=== PATIENT | female | born 1960 | race Caucasian/White ===

== ENCOUNTER 2016-08-14 09:34 | Emergency (ER) | payer BC ==
[~2016-08-14 09:34] MED LIST: ASPIRIN 81 MG TABLET, CHEWABLE PO ONE
--- NOTE | 2016-08-14 09:56 | ER Document Report ---
ED General - General Mode of Arrival: Medic Information source: Patient TRAVEL OUTSIDE OF THE [place] IN LAST 30 DAYS: No - HPI Patient complains to provider of: Chest Pain Onset: This morning Onset/Duration: Sudden, Persistent Associated symptoms: Chest pain, Nausea, Other - Dizzy, lightheaded <KEYSHA KEEN - Last Filed: 08/14/16 11:46> <ASHLEIGH UPTON - Last Filed: 08/14/16 11:56> - General Chief Complaint: Chest Pain Stated Complaint: CHEST PAIN Notes: Patient is a 56-year-old female presenting to the emergency department concerned of chest pain onset this morning after waking up and taking a shower. Patient also complains of dizziness, clamminess, nausea, and lightheadedness. Patient describes the chest pain as pressure that radiates around into her back. Patient has a history of cholecystectomy, 2 cardiac catheterizations, cardioversion for A. fib, and an operation on her mitral valve (she does not know what the surgeon did). Patient denies any other symptoms at this time. ( KEYSHA KEEN) - Related Data Allergies/Adverse Reactions: No Known Allergies Allergy (Verified 12/21/13 22:49) Past Medical History - General Information source: Patient - Social History Smoking Status: Never Smoker Family History: Reviewed & Not Pertinent, CAD, CVA, Hypertension, Malignancy - Past Medical History Cardiac Medical History: Reports: Hx Atrial Fibrillation, Hx Hypercholesterolemia, Hx Hypertension Neurological Medical History: Reports: Hx Migraine Psychiatric Medical History: Reports: Hx Depression Past Surgical History: Reports: Hx Cardiac Catheterization, Hx Cardiac Surgery - Cardioversion and mitral valve clip, Hx Section - X2, Hx Cholecystectomy, Hx Orthopedic Surgery - left shoulder x5 - Immunizations Immunizations up to date: Yes Hx Diphtheria, Pertussis, Tetanus Vaccination: Yes <KEYSHA KEEN - Last Filed: 08/14/16 11:46> Past Surgical History: Reports: Hx Cardiac Catheterization - Cardiac catheter 2 , no coronary artery disease found, Hx Orthopedic Surgery - left shoulder x5, anterior cervical fusion <ASHLEIGH UPTON - Last Filed: 08/14/16 11:56> Review of Systems - Review of Systems Constitutional: See HPI, Other - Clammy EENT: No symptoms reported Cardiovascular: See HPI, Chest pain - Pressure, Dizziness, Lightheaded Respiratory: No symptoms reported Gastrointestinal: See HPI, Nausea Genitourinary: No symptoms reported Female Genitourinary: No symptoms reported Musculoskeletal: No symptoms reported Skin: No symptoms reported Hematologic/Lymphatic: No symptoms reported Neurological/Psychological: No symptoms reported <KEYSHA KEEN - Last Filed: 08/14/16 11:46> Physical Exam - General General appearance: Alert, Anxious - HEENT Head: Normocephalic, Atraumatic, Other - Turning head back and forth or up and down does not worsen dizziness. Eyes: Normal, Other - No lateral gaze nystagmus Pupils: PERRL - Respiratory Respiratory status: No respiratory distress Chest status: Nontender - No anterior chest wall tenderness to palpation Breath sounds: Normal - Cardiovascular Rhythm: Regular Heart sounds: Normal auscultation Murmur: No - Abdominal Inspection: Normal Tenderness: Tender - Epigastric tenderness to palpation - Back Back: Normal, Nontender - Extremities General upper extremity: Normal inspection, Nontender General lower extremity: Normal inspection, Nontender - Neurological Neuro grossly intact: Yes Cognition: Normal Orientation: AAOx4 Fredy Coma Scale Eye Opening: Spontaneous Brady Coma Scale Verbal: Oriented Brady Coma Scale Motor: Obeys Commands Brady Coma Scale Total: 15 Speech: Normal - Psychological Associated symptoms: Normal affect, Anxious - Skin Skin Temperature: Warm Skin Moisture: Dry Skin Color: Normal <KEYSHA KEEN - Last Filed: 08/14/16 11:46> Course - Laboratory Result Diagrams: 08/14/16 09:45 08/14/16 09:45 <KEYSHA KEEN - Last Filed: 08/14/16 11:46> - Laboratory Result Diagrams: 08/14/16 09:45 08/14/16 09:45 <ASHLEIGH UPTON - Last Filed: 08/14/16 11:56> - Vital Signs Vital signs: Temp Pulse Resp BP Pulse Ox 97.7 F 12 137/89 H 100 08/14/16 09:55 08/14/16 11:01 08/14/16 11:00 08/14/16 11:01 - Laboratory Laboratory results interpreted by me: 08/14/16 08/14/16 09:45 09:45 WBC 11.7 H Seg Neutrophils % 87.3 H Lymphocytes % 7.1 L Absolute Neutrophils 10.2 H Sodium 145.7 H BUN 21 H Creatine Kinase 199 H Discharge <KEYSHA KEEN Last Filed: 08/14/16 11:46> <ASHLEIGH UPTON - Last Filed: 08/14/16 11:56> - Discharge Clinical Impression: Anxiety GERD (gastroesophageal reflux disease) Qualifiers: Esophagitis presence: esophagitis presence not specified Qualified Code(s): K21.9 - Gastro-esophageal reflux disease without esophagitis Chest pain Qualifiers: Chest pain type: unspecified Qualified Code(s): R07.9 - Chest pain, unspecified Condition: Stable Disposition: HOME, SELF-CARE Additional Instructions: Reflux Disease (GERD): Gastro-Esophageal Reflux Disease (GERD) is caused by stomach acid refluxing back up into the esophagus. The valve at the end of the esophagus may be weak. This is common in persons with a hiatal hernia. GERD symptoms can include indigestion, chest pain, heartburn, or food "sticking." Certain foods, alcohol, and aspirin can make GERD worse. Treatment depends on the severity. Usually, antacids or acid-suppressing medicines are used. When the esophagus is acutely inflamed, the physician will often prescribe membrane-protective drugs such as Carafate. Some patients benefit from medication such as Reglan that tightens the valve at the top of the stomach. Avoid those foods that bring on your symptoms. For many people, these foods are coffee, chocolate, onions, garlic, and carbonated drinks. Don't use alcohol, aspirin, caffeine, or tobacco. Don't eat late at night -- within 4 hours of bedtime. Don't over-eat. If necessary, elevate the head of your bed about 4 inches so that stomach acid will not roll up into your esophagus. Call the doctor if you develop severe chest pain, inability to swallow fluids, fever, or worsening symptoms. TAKE PRILOSEC OTC ONCE DAILY. EAT A BLAND DIET. TAKE ANTI-ACIDS BETWEEN MEALS AND AT BEDTIME. FOLLOW UP WITH YOUR DOCTOR IF NOT IMPROVING. RETURN TO THE EMERGENCY ROOM IF ANY NEW OR WORSENING SYMPTOMS. Forms: Return to Work Scribe Attestation: 08/14/16 11:55 I personally performed the services described in the documentation, reviewed and edited the documentation which was dictated to the scribe in my presence, and it accurately records my words and actions. (ASHLEIGH UPTON) Scribe Documentation - Scribe Written by Scribtara:: Keysha Keen 08/14/2016 [id number] acting as scribe for :: Clif <KEYSHA KEEN - Last Filed: 08/14/16 11:46>
[2016-08-14 09:59] LABS: ABSOLUTE EOSINOPHILS # (AUTO) 0.1 10^3/uL (0.0-0.6); ABSOLUTE LYMPHOCYTES (AUTO) 0.8 10^3/uL (0.5-4.7); ABSOLUTE MONOCYTES (AUTO) 0.5 10^3/uL (0.1-1.4); ABSOLUTE NEUT (AUTO) 10.2 10^3/uL (1.7-8.2); BASOPHILS % (AUTO) 0.2 % (0-2); EOSINOPHILS % (AUTO) 0.8 % (0-6); HEMATOCRIT 41.5 % (36.0-47.0); HEMOGLOBIN 14.3 g/dL (12.0-15.5); HGB HCT DIFFERENCE 1.4; LYMPHOCYTES % (AUTO) 7.1 % (13-45); MEAN CORPUSCULAR HEMOGLOBIN 30.5 pg (27.0-33.4); MEAN CORPUSCULAR HGB CONC 34.4 g/dL (32.0-36.0); MEAN CORPUSCULAR VOLUME 89 fl (80-97); MONOCYTES % (AUTO) 4.6 % (3-13); RED BLOOD COUNT 4.68 10^6/uL (3.72-5.28); RED CELL DISTRIBUTION WIDTH 13.4 % (11.5-14.0); SEGMENTED NEUTROPHILS % (AUTO) 87.3 % (42-78); WHITE BLOOD COUNT 11.7 10^3/uL (4.0-10.5)
[2016-08-14] MEDS ORDERED: MAG HYDROX/AL HYDROX/SIMETH SUSP 30 ML UDCUP PO ONE (10:06)
[2016-08-14] MEDS ORDERED: LIDOCAINE 2% VISCOUS SOLN 20 ML UDCUP PO ONE (10:06)
[2016-08-14] MEDS ORDERED: LORAZEPAM INJ 2 MG/1 ML VIAL IV ONE (10:07)
[2016-08-14] MEDS ORDERED: NORMAL SALINE 1000 ML 1,000 ML IV ONE (10:13)
[2016-08-14 10:18] LABS: ALANINE AMINOTRANSFERASE 30 U/L (9-52); ALBUMIN 4.6 g/dL (3.5-5.0); ALKALINE PHOSPHATASE 103 U/L (38-126); ANION GAP 16 (5-19); ASPARTATE AMINO TRANSFERASE 25 U/L (14-36); BILIRUBIN,DIRECT 0.3 mg/dL (0.0-0.4); BILIRUBIN,TOTAL 0.6 mg/dL (0.2-1.3); BLOOD UREA NITROGEN 21 mg/dL (7-20); CALCIUM 9.9 mg/dL (8.4-10.2); CARBON DIOXIDE 24 mmol/L (22-30); CHLORIDE 106 mmol/L (98-107); CREATINE KINASE 199 U/L (30-135); CREATININE RESULT 0.85 mg/dL (0.52-1.25); GLUCOSE 105 mg/dL (75-110); POTASSIUM 4.2 mmol/L (3.6-5.0); SODIUM 145.7 mmol/L (137-145); TOTAL PROTEIN 7.8 g/dL (6.3-8.2)
[2016-08-14 10:30] LABS: CREATINE KINASE MB 2.09 ng/mL (<4.55)
[2016-08-14 10:31] LABS: TROPONIN I < 0.012 ng/mL
[2016-08-14 12:19] VITALS: BP 119/78
--- NOTE | 2016-08-14 12:54 | EKG REPORT ---
SEVERITY:- NORMAL ECG - SINUS RHYTHM : Confirmed by: Amarilys Nicholson MD 14-Aug-2016 12:53:21
== END 2016-08-14 12:19 | disposition home or self-care (01) ==
LOC: ER 09:34
DX: K21.9 Gastro-esophageal reflux disease without esophagitis (principal); F41.9 Anxiety disorder, unspecified; R07.9 Chest pain, unspecified; R42 Dizziness and giddiness; R11.0 Nausea; I48.91 Unspecified atrial fibrillation
CPT/HCPCS: 93005; 99285; 96361; 96374; 36415; 82553; 82550; 85025; 80053; 84484; 71010; 93010; J3490; J2060; J7030

== ENCOUNTER 2017-01-02 19:57 | Emergency (ER) | payer BC ==
[2017-01-02] MEDS ORDERED: HYDROMORPHONE HCL INJ/PF 2 MG/ML AMPULE IV ONE (20:08)
[2017-01-02] MEDS ORDERED: HYDROMORPHONE HCL INJ/PF 2 MG/ML AMPULE ONE (20:10)
[2017-01-02] MEDS ORDERED: ONDANSETRON HCL INJ/PF 4 MG/2 ML SDV ONE (20:10)
--- NOTE | 2017-01-02 20:22 | ER Document Report ---
ED General - General Stated Complaint: HEAD/NECK PAIN Time Seen by Provider: 01/02/17 20:07 Notes: Patient is a 56-year-old female comes emergency department for chief complaint of severe upper back and neck pain that started about 1 hour prior to arrival. She states the pain is so bad it made her vomit. She also reports pain radiating down both of her arms. She denies chest pain, abdominal pain. She denies headache. She denies numbness or weakness. She is not on a blood thinner. She is about 4 months postop cervical spine surgery, she states she has hardware but she is unable to give me details, she denies having any injury or understanding why she had the surgery to begin with. This was performed in [place]. Only other reported medical history is hypertension. TRAVEL OUTSIDE OF THE [place] IN LAST 30 DAYS: No - Related Data Allergies/Adverse Reactions: No Known Allergies Allergy (Verified 12/21/13 22:49) Past Medical History - General Information source: Patient - Social History Smoking Status: Never Smoker Drug Abuse: None Lives with: Family Family History: Reviewed & Not Pertinent, CAD, CVA, Hypertension, Malignancy - Past Medical History Cardiac Medical History: Reports: Hx Atrial Fibrillation, Hx Coronary Artery Disease, Hx Hypercholesterolemia, Hx Hypertension Denies: Hx Congestive Heart Failure, Hx Heart Attack, Hx Peripheral Vascular Disease, Hx Heart Murmur Pulmonary Medical History: Denies: Hx Tuberculosis Neurological Medical History: Reports: Hx Migraine. Denies: Hx Cerebrovascular Accident, Hx Seizures Endocrine Medical History: Denies: Hx Diabetes Mellitus Type 2 Renal/ Medical History: Denies: Hx End Stage Renal Disease, Hx Kidney Stones, Hx Ovarian Cysts, Hx Peritoneal Dialysis, Hx Pelvic Inflammatory Disease Malignancy Medical History: Denies: Hx Breast Cancer, Hx Cervical Cancer, Hx Leukemia, Hx Ovarian Cancer GI Medical History: Denies: Hx Gastritis, Hx Gastroesophageal Reflux Disease Musculoskeltal Medical History: Denies Hx Multiple Sclerosis Skin Medical History: Denies Hx MRSA Psychiatric Medical History: Reports: Hx Depression Denies: Hx Dementia Infectious Medical History: Denies: Hx HIV Past Surgical History: Reports: Hx Cardiac Catheterization - Cardiac catheter 2 , no coronary artery disease found, Hx Cardiac Surgery - Cardioversion and mitral valve clip, Hx Section - X2, Hx Cholecystectomy, Hx Orthopedic Surgery - left shoulder x5, anterior cervical fusion. Denies: Hx Appendectomy, Hx Bowel Surgery, Hx Coronary Artery Bypass Graft, Hx Gastric Bypass Surgery, Hx Herniorrhaphy, Hx Hysterectomy, Hx Mastectomy, Hx Pacemaker, Hx Tonsillectomy , Hx Tubal Ligation - Immunizations Immunizations up to date: Yes Hx Diphtheria, Pertussis, Tetanus Vaccination: Yes Review of Systems - Review of Systems Constitutional: No symptoms reported EENT: No symptoms reported Cardiovascular: See HPI Respiratory: No symptoms reported Gastrointestinal: No symptoms reported Genitourinary: No symptoms reported Female Genitourinary: No symptoms reported Musculoskeletal: See HPI Skin: No symptoms reported Hematologic/Lymphatic: No symptoms reported Neurological/Psychological: See HPI Physical Exam - Vital signs Vitals: Resp Pulse Ox 17 98 01/02/17 20:06 01/02/17 20:06 Interpretation: Normal - General General appearance: Anxious In distress: Severe - HEENT Head: Normocephalic, Atraumatic Eyes: Normal Conjunctiva: Normal Extraocular movements intact: Yes Eyelashes: Normal Pupils: PERRL Nasal: Normal Mouth/Lips: Normal Mucous membranes: Normal Pharynx: Normal Neck: Normal - Respiratory Respiratory status: No respiratory distress Chest status: Nontender Breath sounds: Normal Chest palpation: Normal - Cardiovascular Rhythm: Regular. No: Tachycardia Heart sounds: Normal auscultation, S1 appreciated, S2 appreciated Murmur: No - Abdominal Inspection: Normal Distension: No distension Bowel sounds: Normal Tenderness: Nontender. No: Tender, Guarding Organomegaly: No organomegaly - Back Back: Tender - Patient does have tenderness in the general lower cervical area on examination, no swelling. Normal upper and lower extremity range of motion, strength, and sensation. Normal capillary refill. No saddle anesthesia. - Extremities General upper extremity: Normal inspection, Nontender, Normal color, Normal ROM , Normal temperature General lower extremity: Normal inspection, Nontender, Normal color, Normal ROM , Normal temperature, Normal weight bearing. No: Arlette's sign - Neurological Neuro grossly intact: Yes Cognition: Normal Orientation: AAOx4 Temperance Coma Scale Eye Opening: Spontaneous Temperance Coma Scale Verbal: Oriented Temperance Coma Scale Motor: Obeys Commands Fredy Coma Scale Total: 15 Speech: Normal Cranial nerves: Normal Cerebellar coordination: Normal Motor strength normal: LUE, RUE, LLE, RLE Additional motor exam normals: Equal asp net developer Sensory: Normal - Psychological Associated symptoms: Agitated - Skin Skin Temperature: Warm Skin Moisture: Dry Skin Color: Normal Course - Re-evaluation Re-evalutation: Patient initially writhing in pain, diaphoretic, flushed, she does have palpable pain in the lower cervical spine region, she does have pulses intact distally in the upper and lower extremities, she does have normal strength in all extremities. Blood pressure in the left arm 130s over 80s, blood pressure in the right arm 110s over 70s. Performing laboratory workup including EKG, will perform cervical spine imaging, will perform CTA to rule out dissection. Patient was discussed with Dr. Oliva. Patient's is at bedside. Called and confirmed imaging choices with radiology. 01/02/17 20:23 Review of previous visit shows history of RA and paroxysmal afib. CBC, chemistry generally unremarkable with slightly low bicarbonate. Patient given IV fluids. CTA of the chest/aorta with no dissection or acute abnormalities. CAT scan of the neck showing stable postsurgical findings. Patient is tender with palpation of the inferior cervical area. She has full range of motion of extremities, normal distal pulses and sensation. Normal strength. After treatments patient calm, relaxed, well appearing. 01/02/17 22:21 Pending call back from [facility]. Spoke with Dr. Dickinson, assistant store manager operations for Dr. Rincon who patient states she saw, he reports that patient actually had a procedure done by Dr. Roberts but he is assistant store manager operations for them as well. Reviewed symptoms, presentation, workup. He states that because patient's CAT scan, lab workup, and examination do not show any concerning deficits or abnormalities that patient can have pain management and close follow-up with Dr. Roberts. I spoke with patient, she became very nauseated and vomited multiple times, I actually suspect this was from the Dilaudid, treated with nausea medications and this resolved. No headache. Neurological exam is normal. Patient is now very well appearing again. Vital signs unremarkable. Cardiac enzymes cycled and normal. Discussed at length with patient and family, provided with copy of disc , medications including Lidoderm patches, and return precautions. Patient states understanding and agreement. - Vital Signs Vital signs: Temp Pulse Resp BP Pulse Ox 98 F 10 L 108/69 95 01/03/17 03:10 01/03/17 03:07 01/03/17 03:07 01/03/17 03:07 - Laboratory Result Diagrams: 01/02/17 20:10 01/02/17 20:10 Laboratory results interpreted by me: 01/02/17 20:10 Carbon Dioxide 20 L Glucose 121 H Calcium 10.4 H Creatine Kinase 166 H Total Protein 8.4 H Albumin 5.1 H Discharge - Discharge Clinical Impression: Neck pain Condition: Stable Disposition: HOME, SELF-CARE Additional Instructions: Your workup does not show any concerning abnormalities in regards to your chest , heart, or any obvious post surgical findings with your neck. Apply the patches, if needed take the pain medication (with the nausea medication if needed). Follow up closely with your surgeon (call tomorrow, take your disc with you on close followup). Return to the ED for [place] [address] [place], [place] [id number] Prescriptions: Morphine Sulfate [Morphine Ir 15 Mg Tablet] 15 mg PO Q4HP PRN #12 tablet PRN Reason: Lidocaine [Lidoderm 5% (700 mg) Transdermal Patch] 1 patch TP DAILY #30 adh..patch Ondansetron [Zofran Odt 4 mg Tablet] 1 - 2 tab PO Q4H PRN #15 tab.rapdis PRN Reason: For Nausea/Vomiting Referrals: EVE BOOKER MD [Primary Care Provider] - Follow up as needed
[2017-01-02 20:31] LABS: ABSOLUTE EOSINOPHILS # (AUTO) 0.1 10^3/uL (0.0-0.6); ABSOLUTE LYMPHOCYTES (AUTO) 3.1 10^3/uL (0.5-4.7); ABSOLUTE MONOCYTES (AUTO) 0.5 10^3/uL (0.1-1.4); ABSOLUTE NEUT (AUTO) 3.9 10^3/uL (1.7-8.2); BASOPHILS % (AUTO) 0.3 % (0-2); EOSINOPHILS % (AUTO) 1.1 % (0-6); HEMATOCRIT 42.7 % (36.0-47.0); HEMOGLOBIN 14.9 g/dL (12.0-15.5); LYMPHOCYTES % (AUTO) 40.3 % (13-45); MEAN CORPUSCULAR HEMOGLOBIN 31.6 pg (27.0-33.4); MEAN CORPUSCULAR HGB CONC 34.9 g/dL (32.0-36.0); MEAN CORPUSCULAR VOLUME 91 fl (80-97); MONOCYTES % (AUTO) 6.7 % (3-13); RED BLOOD COUNT 4.72 10^6/uL (3.72-5.28); RED CELL DISTRIBUTION WIDTH 12.9 % (11.5-14.0); SEGMENTED NEUTROPHILS % (AUTO) 51.6 % (42-78); WHITE BLOOD COUNT 7.6 10^3/uL (4.0-10.5)
[2017-01-02 20:48] LABS: ALANINE AMINOTRANSFERASE 40 U/L (9-52); ALBUMIN 5.1 g/dL (3.5-5.0); ALKALINE PHOSPHATASE 112 U/L (38-126); ANION GAP 17 (5-19); ASPARTATE AMINO TRANSFERASE 28 U/L (14-36); BILIRUBIN,DIRECT 0.4 mg/dL (0.0-0.4); BILIRUBIN,TOTAL 0.9 mg/dL (0.2-1.3); BLOOD UREA NITROGEN 13 mg/dL (7-20); CALCIUM 10.4 mg/dL (8.4-10.2); CARBON DIOXIDE 20 mmol/L (22-30); CHLORIDE 105 mmol/L (98-107); CREATINE KINASE 166 U/L (30-135); CREATININE RESULT 0.88 mg/dL (0.52-1.25); GLUCOSE 121 mg/dL (75-110); POTASSIUM 3.7 mmol/L (3.6-5.0); SODIUM 141.7 mmol/L (137-145); TOTAL PROTEIN 8.4 g/dL (6.3-8.2)
[2017-01-02] MEDS ORDERED: ONDANSETRON HCL INJ/PF 4 MG/2 ML SDV IV ONE ×2 (20:48→22:49)
[2017-01-02 20:59] LABS: CREATINE KINASE MB 1.58 ng/mL (<4.55)
[2017-01-02 21:00] LABS: TROPONIN I < 0.012 ng/mL
--- NOTE | 2017-01-02 21:12 | EKG REPORT ---
SEVERITY:- NORMAL ECG - SINUS RHYTHM : Confirmed by: Cam Cobb 02-Jan-2017 21:11:06
--- NOTE | 2017-01-02 21:41 | RADIOLOGY REPORT (SQ) ---
EXAM DESCRIPTION: CT CERVICAL SPINE WITHOUT COMPLETED DATE/TIME: 01/02/2017 9:20 pm REASON FOR STUDY: post op, severe neck/upper back pain COMPARISON: None. TECHNIQUE: Axial images acquired through the cervical spine without intravenous contrast. Images re viewed with lung, soft tissue and bone windows. Reconstructed coronal and sagittal MPR images review ed. Images stored on PACS. All CT scanners at this facility use dose modulation, iterative reconstruction, and/or weight based d osing when appropriate to reduce radiation dose to as low as reasonably achievable (ALARA). [facility]: Dose Right [facility]: CareDose [facility]: Dose Right [facility]: Teradose 4D [facility]: Smart [employer] RADIATION DOSE: Up-to-date CT equipment and radiation dose reduction techniques were employed. CTDIv ol: 16.8 mGy. DLP: 384 mGy-cm. mGy. LIMITATIONS: None. FINDINGS: ALIGNMENT: Anatomic. MINERALIZATION: Normal. VERTEBRAL BODIES: No fractures or dislocation. DISCS: No significant disc disease. FACETS, LATERAL MASSES, POSTERIOR ELEMENTS: No fractures. No dislocation. No acute findings. HARDWARE: There are postsurgical changes with anterior fusion from C4 through C7. VISUALIZED RIBS: No fractures. LUNG APICES AND SOFT TISSUES: No significant or acute findings. OTHER: No other significant finding. IMPRESSION: Postsurgical changes. No acute findings in the cervical spine. TECHNICAL DOCUMENTATION: JOB ID: [id number] Quality ID # [id number]: Final reports with documentation of one or more dose reduction techniques (e.g., Au tomated exposure control, adjustment of the mA and/or kV according to patient size, use of iterative reconstruction technique) 2010 [employer]- All Rights Reserved
--- NOTE | 2017-01-02 21:43 | RADIOLOGY REPORT (SQ) ---
EXAM DESCRIPTION: CTA CHEST COMPLETED DATE/TIME: 01/02/2017 9:20 pm REASON FOR STUDY: severe upper back pain, rule out dissection COMPARISON: None. TECHNIQUE: CT scan of the chest performed using helical scanning technique with dynamic intravenous contrast injection. Images reviewed with lung, soft tissue and bone windows. Reconstructed coronal and sagittal MPR images reviewed. Additional 3 dimensional post-processing performed to develop Maximal Intensity Projection images (IN P). All images stored on PACS. All CT scanners at this facility use dose modulation, iterative reconstruction, and/or weight based d osing when appropriate to reduce radiation dose to as low as reasonably achievable (ALARA). [facility]: Dose Right [facility]: CareDose [facility]: Dose Right [facility]: Teradose 4D [facility]: Panjiva CONTRAST TYPE AND DOSE: contrast/concentration: Isovue 370.00 mg/ml; Total Contrast Delivered: 100.0 ml; Total Saline Delivered: 70.0 ml RENAL FUNCTION: BUN 13, creatinine 0.88 RADIATION DOSE: Up-to-date CT equipment and radiation dose reduction techniques were employed. CTDIv ol: 11.2 - 17.0 mGy. DLP: 721 mGy-cm. . LIMITATIONS: None. FINDINGS: LUNGS AND PLEURA: No masses, infiltrates, pneumothorax. No pleural effusions, calcificati ons. AORTA AND GREAT VESSELS: No aneurysm or dissection. HEART: No pericardial effusion. PULMONARY ARTERIES: No emboli visualized in the main pulmonary arteries or the segmental branches. HILAR AND MEDIASTINAL STRUCTURES: No identified masses or abnormal nodes. HARDWARE: None in the chest. UPPER ABDOMEN: No significant findings. Limited exam. THYROID AND OTHER SOFT TISSUES: No masses. No adenopathy. BONES: No acute or significant finding. 3D MIPS: Confirm above findings. OTHER: No other significant finding. IMPRESSION: Normal CT of the chest. No pulmonary emboli. No aortic dissection. TECHNICAL DOCUMENTATION: JOB ID: [id number] Quality ID # [id number]: Final reports with documentation of one or more dose reduction techniques (e.g., Au tomated exposure control, adjustment of the mA and/or kV according to patient size, use of iterative reconstruction technique) 2010 [employer]- All Rights Reserved
--- NOTE | 2017-01-02 21:47 | RADIOLOGY REPORT (SQ) ---
EXAM DESCRIPTION: CTA ABDOMEN COMPLETED DATE/TIME: 01/02/2017 9:20 pm REASON FOR STUDY: rule out dissection COMPARISON: None. TECHNIQUE: CT scan of the abdominal aorta extending to the iliac bifurcation performed with and with out intravenous contrast using helical scanning technique with dynamic intravenous contrast injection . Images reviewed with lung, soft tissue, and bone windows. Reconstructed coronal and sagittal MPR im ages reviewed. All images stored on PACS. Advanced 3D imaging as volume rendering, MIPS, SSD performed? yes All CT scanners at this facility use dose modulation, iterative reconstruction, and/or weight based d osing when appropriate to reduce radiation dose to as low as reasonably achievable (ALARA). [facility]: Dose Right [facility]: CareDose [facility]: Dose Right [facility]: Teradose 4D [facility]: [employer] CONTRAST TYPE AND DOSE: 7 mL Isovue 370 RENAL FUNCTION: BUN 13, creatinine 0.88 LIMITATIONS: None. FINDINGS: POST-CONTRAST IMAGING: AORTA AND VESSELS: No aneurysm. No dissection. Renal arteries, SMA, celiac without stenosis. LUNG BASES: No significant findings. No nodules or infiltrates. LIVER: Normal size. No masses or dilated ducts. SPLEEN: Normal size. No focal lesions. PANCREAS: No masses. No significant calcifications. No adjacent inflammation or peripancreatic fluid collections. Pancreatic duct not dilated. GALLBLADDER: Surgically absent. ADRENAL GLANDS: No significant masses or asymmetry. RIGHT KIDNEY AND URETER: No mass, calculi or urinary tract obstruction. LEFT KIDNEY AND URETER: No mass, calculi or urinary tract obstruction. RETROPERITONEUM: No retroperitoneal adenopathy, hemorrhage or masses. BOWEL AND PERITONEAL CAVITY: No masses or inflammatory changes. No free fluid or peritoneal masses. APPENDIX: Normal. ABDOMINAL WALL: No masses. No hernias. BONY STRUCTURES: No significant or acute findings. 3-D IMAGING: Confirms the above findings. OTHER: No other significant finding. IMPRESSION: NO ABDOMINAL AORTIC ANEURYSM, DISSECTION OR SIGNIFICANT STENOSIS. NO SIGNIFICANT FINDING S IN THE ABDOMEN. TECHNICAL DOCUMENTATION: JOB ID: [id number] Quality ID # [id number]: Final reports with documentation of one or more dose reduction techniques (e.g., Au tomated exposure control, adjustment of the mA and/or kV according to patient size, use of iterative reconstruction technique) 2010 [employer]- All Rights Reserved
--- NOTE | 2017-01-02 21:48 | RADIOLOGY REPORT (SQ) ---
EXAM DESCRIPTION: CTA PELVIS COMPLETE DATE/TIME: 01/02/2017 9:20 pm REASON FOR STUDY: severe upper back pain, rule out dissection FINDINGS: Please see combined report for performance of procedure and radiologic supervision and int erpretation. IMPRESSION: Please see combined report for performance of procedure and radiologic supervision and i nterpretation.
[2017-01-02] MEDS ORDERED: NORMAL SALINE 1000 ML 1,000 ML IV ONE (21:53)
[2017-01-02] MEDS ORDERED: LIDOCAINE 5% (700 MG) TRANSDERMAL ADH..PATCH TP ONE (21:56)
[2017-01-02] MEDS ORDERED: DIPHENHYDRAMINE HCL 50 MG/ML VIAL IV ONE (22:49)
[2017-01-03] MEDS ORDERED: DIPHENHYDRAMINE HCL 50 MG/ML VIAL IV ONE (01:09)
[2017-01-03] MEDS ORDERED: PROCHLORPERAZINE EDISYLATE INJ 10 MG/2 ML VIAL IV ONE (01:10)
[2017-01-03 05:05] VITALS: BP 108/69
== END 2017-01-03 03:10 | disposition home or self-care (01) ==
LOC: ER 19:57
DX: M54.2 Cervicalgia (principal); M54.89 Other dorsalgia; R11.2 Nausea with vomiting, unspecified; R61 Generalized hyperhidrosis; R23.2 Flushing; I10 Essential (primary) hypertension; I25.10 Atherosclerotic heart disease of native coronary artery without angina pectoris; Z98.1 Arthrodesis status
CPT/HCPCS: 93005; 96376; 99284; 96361; 96374; 96375; 36415; 82553; 82550; 85025; 80053; 84484; 71275; 72125; 74175; 72191; 93010; J1200 ×2; J1170; J0780; J2405; J7030

== ENCOUNTER 2017-01-06 06:15 | Emergency (ER) | payer BC ==
[2017-01-06] MEDS ORDERED: ASPIRIN 81 MG TABLET, CHEWABLE PO ONE (06:16)
[2017-01-06] MEDS ORDERED: PROCHLORPERAZINE EDISYLATE INJ 10 MG/2 ML VIAL IV ONE (06:28)
[2017-01-06] MEDS ORDERED: DIPHENHYDRAMINE HCL 50 MG/ML VIAL IV ONE (06:29)
--- NOTE | 2017-01-06 06:30 | ER Document Report ---
ED Medical Screen (RME) - General Chief Complaint: Chest Pain Stated Complaint: CHEST PAIN Time Seen by Provider: 01/06/17 06:23 Notes: 56-year-old female, chief complaint of headache which is throbbing and on the right side behind her right eye with nausea, photophobia. She awoke with it this morning. She has had headaches similar in the past. She also states that she had discomfort in her chest which has improved, she was given aspirin and nitroglycerin by EMS. She does have a history of coronary stenting, this was years ago, she still sees cardiology Dr. Serra. She denies injury to her head or chest, she denies shortness of breath or fever. TRAVEL OUTSIDE OF THE [place] IN LAST 30 DAYS: No - Related Data Allergies/Adverse Reactions: No Known Allergies Allergy (Verified 12/21/13 22:49) Past Medical History - Past Medical History Cardiac Medical History: Reports: Hx Atrial Fibrillation, Hx Coronary Artery Disease, Hx Hypercholesterolemia, Hx Hypertension Denies: Hx Congestive Heart Failure, Hx Heart Attack, Hx Peripheral Vascular Disease, Hx Heart Murmur Pulmonary Medical History: Denies: Hx Tuberculosis Neurological Medical History: Reports: Hx Migraine. Denies: Hx Cerebrovascular Accident, Hx Seizures Endocrine Medical History: Denies: Hx Diabetes Mellitus Type 2 Renal/ Medical History: Denies: Hx End Stage Renal Disease, Hx Kidney Stones, Hx Ovarian Cysts, Hx Peritoneal Dialysis, Hx Pelvic Inflammatory Disease Malignancy Medical History: Denies: Hx Breast Cancer, Hx Cervical Cancer, Hx Leukemia, Hx Ovarian Cancer GI Medical History: Denies: Hx Gastritis, Hx Gastroesophageal Reflux Disease Musculoskeltal Medical History: Denies Hx Multiple Sclerosis Skin Medical History: Denies Hx MRSA Psychiatric Medical History: Reports: Hx Depression Denies: Hx Dementia Infectious Medical History: Denies: Hx HIV Past Surgical History: Reports: Hx Cardiac Catheterization - Cardiac catheter 2 , no coronary artery disease found, Hx Cardiac Surgery - Cardioversion and mitral valve clip, Hx Section - X2, Hx Cholecystectomy, Hx Orthopedic Surgery - left shoulder x5, anterior cervical fusion. Denies: Hx Appendectomy, Hx Bowel Surgery, Hx Coronary Artery Bypass Graft, Hx Gastric Bypass Surgery, Hx Herniorrhaphy, Hx Hysterectomy, Hx Mastectomy, Hx Pacemaker, Hx Tonsillectomy , Hx Tubal Ligation - Immunizations Immunizations up to date: Yes Hx Diphtheria, Pertussis, Tetanus Vaccination: Yes Physical Exam - Respiratory Respiratory status: No respiratory distress Breath sounds: Normal. No: Decreased air movement, Wheezing - Cardiovascular Rhythm: Regular. No: Tachycardia Heart sounds: Normal auscultation, S1 appreciated, S2 appreciated
[2017-01-06 06:45] LABS: ABSOLUTE LYMPHOCYTES (AUTO) 1.3 10^3/uL (0.5-4.7); ABSOLUTE MONOCYTES (AUTO) 0.4 10^3/uL (0.1-1.4); ABSOLUTE NEUT (AUTO) 4.8 10^3/uL (1.7-8.2); BASOPHILS % (AUTO) 0.2 % (0-2); EOSINOPHILS % (AUTO) 0.4 % (0-6); HEMATOCRIT 36.3 % (36.0-47.0); HEMOGLOBIN 12.9 g/dL (12.0-15.5); HGB HCT DIFFERENCE 2.4; LYMPHOCYTES % (AUTO) 19.9 % (13-45); MEAN CORPUSCULAR HEMOGLOBIN 32.5 pg (27.0-33.4); MEAN CORPUSCULAR HGB CONC 35.6 g/dL (32.0-36.0); MEAN CORPUSCULAR VOLUME 91 fl (80-97); MONOCYTES % (AUTO) 6.3 % (3-13); RED BLOOD COUNT 3.98 10^6/uL (3.72-5.28); RED CELL DISTRIBUTION WIDTH 13.1 % (11.5-14.0); SEGMENTED NEUTROPHILS % (AUTO) 73.2 % (42-78); WHITE BLOOD COUNT 6.6 10^3/uL (4.0-10.5)
[2017-01-06 06:58] LABS: ALANINE AMINOTRANSFERASE 33 U/L (9-52); ALBUMIN 4.5 g/dL (3.5-5.0); ALKALINE PHOSPHATASE 94 U/L (38-126); ANION GAP 14 (5-19); ASPARTATE AMINO TRANSFERASE 26 U/L (14-36); BILIRUBIN,DIRECT 0.4 mg/dL (0.0-0.4); BILIRUBIN,TOTAL 0.7 mg/dL (0.2-1.3); BLOOD UREA NITROGEN 12 mg/dL (7-20); CARBON DIOXIDE 21 mmol/L (22-30); CHLORIDE 108 mmol/L (98-107); CREATINE KINASE 340 U/L (30-135); CREATININE RESULT 0.76 mg/dL (0.52-1.25); GLUCOSE 166 mg/dL (75-110); TOTAL PROTEIN 7.3 g/dL (6.3-8.2)
[2017-01-06 07:10] LABS: CREATINE KINASE MB 4.07 ng/mL (<4.55)
[2017-01-06 07:11] LABS: TROPONIN I < 0.012 ng/mL
--- NOTE | 2017-01-06 07:18 | RADIOLOGY REPORT (SQ) ---
EXAM DESCRIPTION: CHEST SINGLE VIEW COMPLETED DATE/TIME: 01/06/2017 7:05 am REASON FOR STUDY: chest pain COMPARISON: 08/14/2016. CT, 01/02/2017. EXAM PARAMETERS: NUMBER OF VIEWS: One view. TECHNIQUE: Single frontal radiographic view of the chest acquired. RADIATION DOSE: NA LIMITATIONS: None. FINDINGS: LUNGS AND PLEURA: No opacities, masses or pneumothorax. No pleural effusion. MEDIASTINUM AND HILAR STRUCTURES: No masses. Contour normal. HEART AND VASCULAR STRUCTURES: Heart normal in size. Normal vasculature. BONES: No acute findings. HARDWARE: Lower cervical hardware fusion. OTHER: No other significant finding. IMPRESSION: NO ACUTE RADIOGRAPHIC FINDING IN THE CHEST. TECHNICAL DOCUMENTATION: JOB ID: [id number]
--- NOTE | 2017-01-06 07:26 | ER Document Report ---
ED Cardiac - General Information source: Patient TRAVEL OUTSIDE OF THE [place] IN LAST 30 DAYS: No - HPI Patient complains to provider of: Chest pain Associated symptoms: Other - see above <ERLIN GONZALEZ - Last Filed: 01/06/17 09:24> <SHIELA RODRIGUEZ - Last Filed: 01/07/17 13:15> - General Chief Complaint: Chest Pain Stated Complaint: CHEST PAIN Time Seen by Provider: 01/06/17 06:23 Notes: Patient is a 56 year old female who presents to the ED with complaints of a headache and chest pain that started in the middle of the night. Patient is asleep on exam. She states that she has not had headaches for long time and she has no history of migraine however patients records show that she has been seen in the ED multiple times for headaches. Patient states the pain is behind her right eye and radiates across her forehead. Patient has had nausea and vomiting x2. She has also recently been dealing with neck and shoulder pain. Patient takes Vicadin daily for pain. Patient is not on any blood thinners. Patient states she also had chest pain. Patient states she took Floricet for her pain and that both her chest pain and headache are gone. History is difficult to obtain due to patient sleeping. (ERLIN GONZALEZ) - Related Data Allergies/Adverse Reactions: No Known Allergies Allergy (Verified 12/21/13 22:49) Past Medical History - General Information source: Patient - Social History Smoking Status: Unknown if Ever Smoked Family History: Reviewed & Not Pertinent, CAD, CVA, Hypertension, Malignancy - Past Medical History Cardiac Medical History: Reports: Hx Atrial Fibrillation, Hx Coronary Artery Disease, Hx Hypercholesterolemia, Hx Hypertension Neurological Medical History: Reports: Hx Migraine Endocrine Medical History: Denies: Hx Diabetes Mellitus Type 2 Psychiatric Medical History: Reports: Hx Depression Past Surgical History: Reports: Hx Cardiac Catheterization - Cardiac catheter 2 , no coronary artery disease found, Hx Cardiac Surgery - Cardioversion and mitral valve clip, Hx Section - X2, Hx Cholecystectomy, Hx Orthopedic Surgery - left shoulder x5, anterior cervical fusion - Immunizations Immunizations up to date: Yes Hx Diphtheria, Pertussis, Tetanus Vaccination: Yes <ERLIN GONZALEZ - Last Filed: 01/06/17 09:24> Review of Systems - Review of Systems Constitutional: No symptoms reported EENT: No symptoms reported Cardiovascular: See HPI, Chest pain Respiratory: No symptoms reported Gastrointestinal: See HPI, Nausea, Vomiting Genitourinary: No symptoms reported Female Genitourinary: No symptoms reported Musculoskeletal: See HPI, Joint pain - shoulders, Neck pain Skin: No symptoms reported Hematologic/Lymphatic: No symptoms reported Neurological/Psychological: See HPI, Headaches <ERLIN GONZALEZ - Last Filed: 01/06/17 09:24> Physical Exam - General General appearance: Other - sleeping on exam In distress: None - HEENT Head: Normocephalic, Atraumatic Eyes: Normal Extraocular movements intact: Yes Pupils: PERRL - Respiratory Respiratory status: No respiratory distress Breath sounds: Normal - Cardiovascular Rhythm: Regular Heart sounds: Normal auscultation Murmur: No - Abdominal Inspection: Normal Distension: No distension Tenderness: Nontender - Back Back: Normal - Extremities General upper extremity: Normal inspection, Nontender, Normal strength. No: Edema General lower extremity: Normal inspection, Nontender, Normal strength. No: Edema - Neurological Neuro grossly intact: Yes Cognition: Normal Orientation: AAOx4 Fredy Coma Scale Eye Opening: Spontaneous Fredy Coma Scale Verbal: Oriented [place] Coma Scale Motor: Obeys Commands Fredy Coma Scale Total: 15 Speech: Normal Motor strength normal: LUE, RUE, LLE, RLE Sensory: Normal - Psychological Associated symptoms: Normal affect, Normal mood - Skin Skin Temperature: Warm Skin Moisture: Dry Skin Color: Normal <ERLIN GONZALEZ - Last Filed: 01/06/17 09:24> - Vital signs Vitals: Pulse Ox 99 01/06/17 06:20 Course - Laboratory Result Diagrams: 01/06/17 06:28 01/06/17 06:28 <ERLIN GONZALEZ - Last Filed: 01/06/17 09:24> - Laboratory Result Diagrams: 01/06/17 06:28 01/06/17 06:28 <SHIELA RODRIGUEZ - Last Filed: 01/07/17 13:15> - Re-evaluation Re-evalutation: 01/06/17 09:18 Patient is now awake. She states that she believes her chest pain is from hyperventilating prior to coming to the ED. (ERLIN GONZALEZ) 01/06/17 09:33 Patient presents emergency department with a chief complaint of headache and chest pain. Patient quickly assessed at the bedside she apparently gave her Fioricet on the way here that she took at home. Patient is difficult to arouse is sleepy I have to shake her to wake her up as she sleeping. The APC I have not saw her about 15 minutes prior to me and ordered some Benadryl so the combination the Benadryl and Fioricet is likely what was causing her to be sleepy and drowsy. Says she has a history of headaches her reports shows that she has had migraines in the past. She had a headache that she woke up within the middle the night. It sounds like after she woke up in the emergency department I can get a better history that she woke up in the middle night with a typical headache which was throbbing and went across her frontal region. She said she was in so much pain she thinks she was hyperventilating that is where her chest started to hurt. She vehemently denies any constant or ongoing chest pain or pressure denies a history of NC or stents. Says she has a history of A. fib but is not on any blood thinners for that. Also has chronic neck pain despite cervical surgery a few months back. She does take daily medication for that and once she is awake alert and oriented here admits that it is likely due to the neck problems going up into her head. She says is not the worst headache of her life no associated blurred vision double vision syncope or near syncope. Headache first started she had 1 or 2 episodes of vomiting but no. diarrhea . She denies diaphoresis radiation of pain and has not complained of chest pain since she has arrived in the emergency department. Her EKG is stable and nonacute her troponin is negative her chest x-ray is negative no acute clinical concerns for NC PE or dissection. Patient is going to be discharged follow-up with her primary care physician first thing on Sunday and discussed reasons for ED return sooner. Patient is persistent about leaving does not want to for a second set of cardiac enzymes is denying any chest pain. Did note flipped T-wave in V2 compared to previous. 01/06/17 15:45 (SHIELA RODRIGUEZ) - Vital Signs Vital signs: Temp Pulse Resp BP Pulse Ox 97.9 F 16 127/76 H 99 01/06/17 06:23 01/06/17 09:01 01/06/17 09:01 01/06/17 09:01 - Laboratory Laboratory results interpreted by me: 01/06/17 06:28 Chloride 108 H Carbon Dioxide 21 L Glucose 166 H Creatine Kinase 340 H - EKG Interpretation by Me Additional EKG results interpreted by me: 01/06/17 15:45 EKG shows sinus rhythm at 67 bpm flipped T waves in V2 compared to previous EKG and 01/02/2017. (SHIELA RODRIGUEZ) Discharge <ERLIN GONZALEZ - Last Filed: 01/06/17 09:24> <SHIELA RODRIGUEZ - Last Filed: 01/07/17 13:15> - Discharge Clinical Impression: Cephalgia resolved, Chest pain nonspecific Condition: Stable Disposition: HOME, SELF-CARE Additional Instructions: Headache The physician does not feel that the headache you are experiencing has a serious underlying cause. Most headaches are due to emotional stress, with resultant muscle tension (tension headache). Occasionally, headaches are secondary to changes in the blood vessels of the scalp (vascular headache and migraine headache). Sometimes, a headache is the first symptom of another developing illness, such as a viral infection. You have no evidence of stroke, bleeding, meningitis, or other serious cause of your headache. The treatment of headaches varies with the severity and cause of the pain. Not all headaches need pain shots. In fact, there is evidence that using narcotics for headaches may make them worse in the long run. The physician will determine the therapy that's in your best interest. If you develop a fever, if the headache is different from any you've previously experienced, or if the headache progressively worsens, then call your physician at once or go to the emergency room. Chest Pain of Unclear Cause The exact cause of your chest pain isn't clear. Fortunately, there is no evidence of a dangerous medical condition. Further testing may be required to find the source of the pain. Most often, we find that this pain is coming from the chest wall -- the muscles or rib joints in the chest. But chest pain can come from the lung and lung lining, the esophagus, the heart valves or heart lining, and even the stomach or gallbladder. Rest. Eat lightly until the pain is gone. We may prescribe medicine for pain and inflammation. You should call the physician immediately if the pain radiates to the shoulder, jaw or arms; if you start to run a fever or develop a cough; or if you develop shortness of breath, or other new or alarming symptoms. Referrals: EVE BOOKER MD [Primary Care Provider] - (In 2-3 days return for increasing worsening or new symptoms) Scribe Attestation: 01/06/17 09:33 I personally performed the services described in the documentation reviewed the documentation recorded by my scribe in my presence and it accurately and completely records my words and actions (SHIELA RODRIGUEZ) Scribe Documentation - Scribe Written by Sheyla:: sheyla Gordillo, 01/06/2017, 916 acting as scribe for :: Db <ERLIN GONZALEZ - Last Filed: 01/06/17 09:24>
[2017-01-06 09:36] VITALS: BP 127/76
--- NOTE | 2017-01-06 21:13 | EKG REPORT ---
SEVERITY:- NORMAL ECG - SINUS RHYTHM NONSPECIFIC T CHANGES ANT PRECORDIAL LEADS : Confirmed by: Cam Cobb 06-Jan-2017 21:12:53
== END 2017-01-06 09:48 | disposition home or self-care (01) ==
LOC: ER 06:15
DX: R07.9 Chest pain, unspecified (principal); R11.2 Nausea with vomiting, unspecified; G89.29 Other chronic pain; M54.2 Cervicalgia; R51 Headache; I48.91 Unspecified atrial fibrillation; I25.10 Atherosclerotic heart disease of native coronary artery without angina pectoris; Z90.49 Acquired absence of other specified parts of digestive tract; Z98.1 Arthrodesis status
CPT/HCPCS: 93005; 99285; 96374; 96375; 36415; 82553; 82550; 85025; 80053; 84484; 71010; 93010; J1200; J0780

== ENCOUNTER 2017-05-03 09:16 | Emergency (ER) | payer BC ==
[2017-05-03] MEDS ORDERED: NORMAL SALINE 1000 ML 1,000 ML IV PRN (09:44)
[2017-05-03] MEDS ORDERED: DIPHENHYDRAMINE HCL 50 MG/ML VIAL IV ONE (09:44)
[2017-05-03] MEDS ORDERED: METOCLOPRAMIDE HCL INJ/PF 10 MG/2 ML SDV IV ONE (09:44)
[2017-05-03] MEDS ORDERED: INDOMETHACIN 50 MG CAPSULE PO ONE (09:46)
[2017-05-03] MEDS ORDERED: MORPHINE SULFATE 10 MG/ML INJ IV ONE (09:47)
--- NOTE | 2017-05-03 09:47 | ER Document Report ---
ED Headache - General Chief Complaint: Headache Stated Complaint: HEADACHE Time Seen by Provider: 05/03/17 09:24 Notes: Patient is a 57 year old female with a past medical history significant for ice pick headaches with PRN indocin, p/w headache >24 hours. Describes it as sharp stabbing pain behind her right eye with associated throbbing sensation. Denies fall, head trauma, vision changes, aura. Admits to light and sound sensitivity, nausea without vomiting. States she took her home indocin last night which allowed her to sleep but woke up with her headache still present this am TRAVEL OUTSIDE OF THE [place] IN LAST 30 DAYS: No - Related Data Allergies/Adverse Reactions: No Known Allergies Allergy (Verified 05/03/17 09:17) Past Medical History - Social History Smoking Status: Never Smoker Frequency of alcohol use: None Drug Abuse: None Family History: Reviewed & Not Pertinent, CAD, CVA, Hypertension, Malignancy Patient has suicidal ideation: No Patient has homicidal ideation: No - Past Medical History Cardiac Medical History: Reports: Hx Atrial Fibrillation, Hx Coronary Artery Disease, Hx Hypercholesterolemia, Hx Hypertension Denies: Hx Congestive Heart Failure, Hx Heart Attack, Hx Peripheral Vascular Disease, Hx Heart Murmur Pulmonary Medical History: Denies: Hx Tuberculosis Neurological Medical History: Reports: Hx Migraine. Denies: Hx Cerebrovascular Accident, Hx Seizures Endocrine Medical History: Denies: Hx Diabetes Mellitus Type 2 Renal/ Medical History: Denies: Hx End Stage Renal Disease, Hx Kidney Stones, Hx Ovarian Cysts, Hx Peritoneal Dialysis, Hx Pelvic Inflammatory Disease Malignancy Medical History: Denies: Hx Breast Cancer, Hx Cervical Cancer, Hx Leukemia, Hx Ovarian Cancer GI Medical History: Denies: Hx Gastritis, Hx Gastroesophageal Reflux Disease Musculoskeltal Medical History: Denies Hx Multiple Sclerosis Skin Medical History: Denies Hx MRSA Psychiatric Medical History: Reports: Hx Depression Denies: Hx Dementia Infectious Medical History: Denies: Hx HIV Past Surgical History: Reports: Hx Cardiac Catheterization - Cardiac catheter 2 , no coronary artery disease found, Hx Cardiac Surgery - Cardioversion and mitral valve clip, Hx Section - X2, Hx Cholecystectomy, Hx Orthopedic Surgery - left shoulder x5, anterior cervical fusion. Denies: Hx Appendectomy, Hx Bowel Surgery, Hx Coronary Artery Bypass Graft, Hx Gastric Bypass Surgery, Hx Herniorrhaphy, Hx Hysterectomy, Hx Mastectomy, Hx Pacemaker, Hx Tonsillectomy , Hx Tubal Ligation - Immunizations Immunizations up to date: Yes Hx Diphtheria, Pertussis, Tetanus Vaccination: Yes Physical Exam - Vital signs Vitals: Temp Pulse Resp BP Pulse Ox 97.8 F 73 16 136/88 H 99 05/03/17 09:21 05/03/17 09:21 05/03/17 09:21 05/03/17 09:21 05/03/17 09:21 - Notes Notes: PHYSICAL EXAM GENERAL: Alert, interacts well. HEAD: Normocephalic, atraumatic. EYES: Pupils equal, round, and reactive to light. Extraocular movements intact. ENT: Oral mucosa moist, tongue midline. NECK: Full range of motion. Supple. Trachea midline. LUNGS: Clear to auscultation bilaterally, no wheezes, rales, or rhonchi. No respiratory distress. HEART: Regular rate and rhythm. No murmurs, gallops, or rubs. ABDOMEN: Soft, nondistended, nontender. No guarding, rebound, or rigidity.. Bowel sounds present in all 4 quadrants. EXTREMITIES: Moves all 4 extremities spontaneously. No edema, radial and dorsalis pedis pulses 2/4 bilaterally. No cyanosis. NEUROLOGICAL: Alert and oriented x4. Normal speech. PSYCH: Normal affect, normal mood. SKIN: Warm, dry, normal turgor. No rashes or lesions noted. Course - Re-evaluation Re-evalutation: 05/03/17 11:21 Patient is a 57-year-old female who is hemodynamically stable, no acute distress and afebrile. Presentation is consistent with patient's history of ice pick type headaches. Patient admits to full symptom relief after pain medications and fluids received in the department. Patient does not have any focal neurologic deficits, nuchal rigidity, vital signs are within normal limits no papilledema. Patient is otherwise no acute distress and hemodynamically stable. Low index for suspicion of acute subarachnoid hemorrhage, meningitis or mass. Low suspicion for acute life-threatening etiology with intact neuro exam therefore no additional imaging or laboratory testing is indicated. Will discharge patient home with strict follow-up with PCP for blood pressure check within the next week. - Vital Signs Vital signs: Temp Pulse Resp BP Pulse Ox 98.0 F 72 20 150/80 H 99 05/03/17 11:36 05/03/17 11:36 05/03/17 11:36 05/03/17 11:36 05/03/17 11:36 Discharge - Discharge Clinical Impression: Headache Qualifiers: Headache type: primary stabbing headache Qualified Code(s): G44.85 - Primary stabbing headache Condition: Good Disposition: HOME, SELF-CARE Additional Instructions: HEADACHE: The physician does not feel that the headache you are experiencing has a serious underlying cause. Most headaches are due to emotional stress, with resultant muscle tension (tension headache). Occasionally, headaches are secondary to changes in the blood vessels of the scalp (vascular headache and migraine headache). Sometimes, a headache is the first symptom of another developing illness, such as a viral infection. You have no evidence of stroke, bleeding, meningitis, or other serious cause of your headache. The treatment of headaches varies with the severity and cause of the pain. Not all headaches need pain shots. In fact, there is evidence that using narcotics for headaches may make them worse in the long run. The physician will determine the therapy that's in your best interest. If you develop a fever, if the headache is different from any you've previously experienced, or if the headache progressively worsens, then call your physician at once or go to the emergency room. REGLAN (METOCLOPRAMIDE): Reglan has been prescribed. This medicine affects the stomach and intestines. It can be used to treat nausea and vomiting, to prevent reflux of stomach acid up into the esophagus, or to increase the contractions of the stomach and intestines. It is often prescribed for esophagitis, and for paralysis of the stomach in diabetics. Reglan can cause either mild restlessness or drowsiness. You should contact the doctor at once if you become extremely restless, anxious, or cannot sleep, or if you develop uncontrollable motions of the lips, tongue, or jaw. Do not take alcohol with this medicine. Do not drive or operate machinery until you have been taking this medicine long enough to know how it affects you. Call the doctor if you develop abdominal pains, lightheadedness, black stool, or blood in the stool or vomitus. USE OF DIPHENHYDRAMINE: Diphenhydramine (Benadryl) is an antihistamine and has been recommended to help treat your headache and to prevent side effects of other medications used to treat headaches. The medication can be repeated four times daily. Age Elixir (12.5 mg/tsp) 25 mg pill adult 1-2 tabs Antihistamines may cause drowsiness, especially with the first dose. Do not operate machinery or drive while under the effects of the medication. Do not combine the medication with alcohol, or with any other medication without talking to your doctor. ANTINAUSEA MEDICATION: You have been given a medication to suppress nausea and vomiting. This type of medication can be given as a shot, pill, or suppository. It will usually last for many hours. Pills and shots usually last six to eight hours, suppositories last about 12 hours. For the typical illness, only one or two doses of the medication may be necessary. Mild lightheadedness may occur. This type of medicine can cause drowsiness. Do not drive or operate dangerous machinery while under its influence. Do not mix with alcohol. See your doctor at once if you have muscle spasms or tightness, or uncontrollable motions (particularly of the neck, mouth, or jaw). Persistent vomiting or severe lightheadedness should also be evaluated by the physician. PAIN MEDICATION INJECTION: You have received an injection of a pain medication. You should experience significant pain relief within 45 minutes. This drug is a narcotic - - it will impair your judgement, slow your reaction time and make you sleepy ( as well as relieve your pain). Narcotics also can cause nausea. You should not drive, work with machinery, or perform any task requiring mental alertness until all effects of the medication are gone -- six to eight hours. Do not take any alcohol, or sedatives, and do not take any other medication without checking with your physician. FOLLOW-UP CARE: If you have been referred to a physician for follow-up care, call the physician s office for an appointment as you were instructed or within the next two days. If you experience worsening or a significant change in your symptoms, notify the physician immediately or return to the Emergency Department at any time for re-evaluation. Forms: Return to Work Referrals: TY COELHO MD [EMERITUS] - Follow up in 1 week
[2017-05-03 11:38] VITALS: BP 150/80
== END 2017-05-03 11:36 | disposition home or self-care (01) ==
LOC: ER 09:16
DX: G44.85 Primary stabbing headache (principal); H53.149 Visual discomfort, unspecified; R11.0 Nausea; I25.10 Atherosclerotic heart disease of native coronary artery without angina pectoris; I10 Essential (primary) hypertension
CPT/HCPCS: 99283; 96361; 96374; 96375; J1200; J3490; J2765; J2270; J7030

== ENCOUNTER 2017-05-06 07:33 | Emergency (ER) | payer BC ==
[2017-05-06] MEDS ORDERED: PROCHLORPERAZINE EDISYLATE INJ 10 MG/2 ML VIAL IM ONE (08:53)
[2017-05-06] MEDS ORDERED: KETOROLAC TROMETHAMINE INJ/PF 30 MG/1 ML SDV IV ONE (08:53)
--- NOTE | 2017-05-06 08:53 | ER Document Report ---
ED Headache - General Chief Complaint: Headache <24 hrs old Stated Complaint: HEADACHE Time Seen by Provider: 05/06/17 08:53 Mode of Arrival: Ambulatory Information source: Patient Notes: 57 yo female with gradual onset frontal, right sided throbbing headache 5/5 since this morning with associated nausea and photophobia. Similar headahces in the past, seen in [facility] ER 12-21 tx with morphine. Due to have cervical myelogram to check resurgence of her neck pain and told not to take NSAID's 4 days prior. No fever or neck stiffness. TRAVEL OUTSIDE OF THE [place] IN LAST 30 DAYS: No - Related Data Allergies/Adverse Reactions: No Known Allergies Allergy (Verified 05/03/17 09:17) Past Medical History - General Information source: Patient - Social History Smoking Status: Never Smoker Chew tobacco use (# tins/day): No Frequency of alcohol use: None Drug Abuse: None Family History: Reviewed & Not Pertinent, CAD, CVA, Hypertension, Malignancy Patient has suicidal ideation: No Patient has homicidal ideation: No - Past Medical History Cardiac Medical History: Reports: Hx Atrial Fibrillation, Hx Coronary Artery Disease, Hx Hypercholesterolemia, Hx Hypertension Neurological Medical History: Reports: Hx Migraine Psychiatric Medical History: Reports: Hx Depression Past Surgical History: Reports: Hx Cardiac Catheterization - Cardiac catheter 2 , no coronary artery disease found, Hx Cardiac Surgery - Cardioversion and mitral valve clip, Hx Section - X2, Hx Cholecystectomy, Hx Orthopedic Surgery - left shoulder x5, anterior cervical fusion - Immunizations Immunizations up to date: Yes Hx Diphtheria, Pertussis, Tetanus Vaccination: Yes Review of Systems - Review of Systems Constitutional: No symptoms reported EENT: No symptoms reported Cardiovascular: No symptoms reported Respiratory: No symptoms reported Gastrointestinal: No symptoms reported Genitourinary: No symptoms reported Female Genitourinary: No symptoms reported Musculoskeletal: No symptoms reported Skin: No symptoms reported Hematologic/Lymphatic: No symptoms reported Neurological/Psychological: See HPI Physical Exam - Vital signs Vitals: Temp Pulse Resp BP Pulse Ox 98.1 F 84 16 153/74 H 98 05/06/17 07:38 05/06/17 07:38 05/06/17 07:38 05/06/17 07:38 05/06/17 07:38 Interpretation: Normal - General General appearance: Appears well, Alert, Anxious - HEENT Head: Normocephalic, Atraumatic Eyes: Normal Conjunctiva: Normal Extraocular movements intact: Yes Pupils: PERRL Nasal: Normal Mucous membranes: Normal Neck: Supple - Respiratory Respiratory status: No respiratory distress Chest status: Nontender Breath sounds: Normal Chest palpation: Normal - Cardiovascular Rhythm: Regular Heart sounds: Normal auscultation Murmur: No - Abdominal Inspection: Normal Distension: No distension Bowel sounds: Normal Tenderness: Nontender Organomegaly: No organomegaly - Back Back: Normal, Nontender - Extremities General upper extremity: Normal inspection, Nontender, Normal color, Normal ROM , Normal temperature General lower extremity: Normal inspection, Nontender, Normal color, Normal ROM , Normal temperature, Normal weight bearing. No: Arlette's sign - Neurological Neuro grossly intact: Yes Cognition: Normal Orientation: AAOx4 [place] Coma Scale Eye Opening: Spontaneous Fredy Coma Scale Verbal: Oriented [place] Coma Scale Motor: Obeys Commands Fredy Coma Scale Total: 15 Speech: Normal Motor strength normal: LUE, RUE, LLE, RLE Sensory: Normal - Psychological Associated symptoms: Normal affect, Normal mood - Skin Skin Temperature: Warm Skin Moisture: Dry Skin Color: Normal Skin irregularity: negative: Rash Course - Re-evaluation Re-evalutation: 05/06/17 09:52 Headache is 0 after compazine and benadryl. States she is ready to go home. - Vital Signs Vital signs: Temp Pulse Resp BP Pulse Ox 98.1 F 83 18 127/68 H 98 05/06/17 10:26 05/06/17 10:26 05/06/17 10:26 05/06/17 10:26 05/06/17 10:26 Discharge - Discharge Clinical Impression: Headache Qualifiers: Headache type: unspecified Headache chronicity pattern: acute headache Intractability: not intractable Qualified Code(s): R51 - Headache Condition: Good Disposition: HOME, SELF-CARE Instructions: Acetaminophen, Intravenous Compazine for Headaches ([facility]), Use of Diphenhydramine, Migraine Headache ([facility]) Additional Instructions: Rest today Tylenol Return to the emergency room for any worsening of the symptoms Referrals: EVE BOOKER MD [Primary Care Provider] - Follow up as needed
[2017-05-06] MEDS ORDERED: DIPHENHYDRAMINE HCL 50 MG/ML VIAL IV ONE (08:54)
[2017-05-06 10:32] VITALS: BP 127/68
== END 2017-05-06 10:48 | disposition home or self-care (01) ==
LOC: ER 07:33
DX: R51 Headache (principal); R11.0 Nausea; H53.149 Visual discomfort, unspecified; M54.2 Cervicalgia
CPT/HCPCS: 99284; 96372; 96374; 96375; J1200; J1885; J0780

== ENCOUNTER → 2017-06-11 | Outpatient (CLI) | payer BC ==
[2017-06-11 15:52] LABS: ABSOLUTE LYMPHOCYTES (AUTO) 1.9 10^3/uL (0.5-4.7); ABSOLUTE MONOCYTES (AUTO) 0.3 10^3/uL (0.1-1.4); ABSOLUTE NEUT (AUTO) 3.4 10^3/uL (1.7-8.2); BASOPHILS % (AUTO) 0.4 % (0-2); EOSINOPHILS % (AUTO) 0.6 % (0-6); HEMATOCRIT 38.8 % (36.0-47.0); HEMOGLOBIN 13.6 g/dL (12.0-15.5); LYMPHOCYTES % (AUTO) 34.1 % (13-45); MEAN CORPUSCULAR HEMOGLOBIN 32.5 pg (27.0-33.4); MEAN CORPUSCULAR HGB CONC 35.2 g/dL (32.0-36.0); MEAN CORPUSCULAR VOLUME 92 fl (80-97); MONOCYTES % (AUTO) 5.1 % (3-13); PLATELET COUNT 215 10^3/uL (150-450); RED CELL DISTRIBUTION WIDTH 13.5 % (11.5-14.0); SEGMENTED NEUTROPHILS % (AUTO) 59.8 % (42-78); TOTAL CELLS COUNTED % (AUTO) 100 %; WHITE BLOOD COUNT 5.6 10^3/uL (4.0-10.5)
[2017-06-11 16:14] LABS: ALANINE AMINOTRANSFERASE 85 U/L (9-52); ALBUMIN 4.8 g/dL (3.5-5.0); ALKALINE PHOSPHATASE 97 U/L (38-126); ANION GAP 12 (5-19); ASPARTATE AMINO TRANSFERASE 32 U/L (14-36); BILIRUBIN,DIRECT 0.3 mg/dL (0.0-0.4); BILIRUBIN,TOTAL 0.4 mg/dL (0.2-1.3); BLOOD UREA NITROGEN 20 mg/dL (7-20); CALCIUM 9.5 mg/dL (8.4-10.2); CARBON DIOXIDE 28 mmol/L (22-30); CHLORIDE 101 mmol/L (98-107); CHOLESTEROL 263.79 mg/dL (0-200); GLUCOSE 116 mg/dL (75-110); POTASSIUM 4.1 mmol/L (3.6-5.0); SODIUM 140.6 mmol/L (137-145); TOTAL PROTEIN 7.7 g/dL (6.3-8.2); TRIGLYCERIDES 182 mg/dL (<150)
[2017-06-11 16:25] LABS: DIRECT LDL 174 mg/dL (<100)
[2017-06-11 16:31] LABS: VLDL CHOLESTEROL 36.4 mg/dL (10-31)
== END ==
LOC: OD 15:27
PROVIDERS: ATTEND Internal Medicine
DX: I10 Essential (primary) hypertension (principal); I48.91 Unspecified atrial fibrillation; R53.83 Other fatigue; G47.00 Insomnia, unspecified; M06.9 Rheumatoid arthritis, unspecified; Z79.899 Other long term (current) drug therapy
CPT/HCPCS: 36415; 80053; 80061; 85025

== ENCOUNTER → 2017-06-15 | Outpatient (CLI) | payer BC ==
[2017-06-16 08:40] LABS: HEPATITIS C VIRUS AB 0.1 s/co ratio (0.0-0.9)
[2017-06-17 10:47] LABS: HEPATITIS B SURFACE AB QUAL Non Reactive (.)
== END ==
LOC: OD 11:45
PROVIDERS: ATTEND Internal Medicine
DX: R79.89 Other specified abnormal findings of blood chemistry (principal)
CPT/HCPCS: 36415; 86706; 86803; 86804

== ENCOUNTER 2019-10-10 16:19 | Emergency (ER) | payer MEDICARE, MEDICAID ==
[2019-10-10 16:24] VITALS: BP 127/88
[2019-10-10] MEDS ORDERED: AMOXICILLIN TR/POT CLAVULANATE 875-125 MG TAB PO ONE (16:45)
[2019-10-10] MEDS ORDERED: IBUPROFEN 800 MG TABLET PO ONE (16:45)
--- NOTE | 2019-10-10 16:49 | ER Document Report ---
ED Animal Bite - General Chief Complaint: Dog Bite Stated Complaint: DOG BITE/ARM PAIN Time Seen by Provider: 10/10/19 16:39 Primary Care Provider: AMARJIT SPENCER MD [ACTIVE STAFF] - Follow up as needed Mode of Arrival: Ambulatory Notes: 59-year-old female presented to ED for complaint of a dog bite to her right forearm. There are several puncture stein to the right forearm. She does have a large bruised area. It was her own dog. She states the dog shots are up-to-date and her shots are up-to-date. She is alert oriented respirations regular and unlabored speaking in full sentences. TRAVEL OUTSIDE OF THE [place] IN LAST 30 DAYS: No - HPI Location of injury: Other - Right forearm Severity of injury: Scratched Onset: Just prior to arrival Quality of pain: Sharp, Throbbing Pain Level: 4 Context of attack: "Provoked" attack, Approached animal Type of animal: Dog Appearance of animal: Appeared well Animal's immunizations: UTD Animal captured or known: Yes Animal control notified: Yes Animal control form completed: Yes - Related Data Allergies/Adverse Reactions: No Known Allergies Allergy (Verified 10/10/19 16:28) Home Medications: adderall. ambien. lorastatin. metoprolol Past Medical History - General Information source: Patient - Social History Smoking Status: Never Smoker Chew tobacco use (# tins/day): No Frequency of alcohol use: None Drug Abuse: None Family History: Reviewed & Not Pertinent, CAD, CVA, Hypertension, Malignancy Patient has homicidal ideation: No - Past Medical History Cardiac Medical History: Reports: Hx Atrial Fibrillation, Hx Coronary Artery Disease, Hx Hypercholesterolemia, Hx Hypertension Pulmonary Medical History: Reports: None EENT Medical History: Reports: None Neurological Medical History: Reports: Hx Migraine Endocrine Medical History: Reports: None Renal/ Medical History: Reports: None Malignancy Medical History: Reports: None GI Medical History: Reports: None Musculoskeletal Medical History: Reports Hx Arthritis - Rheumatoid arthritis, Reports Hx Musculoskeletal Deformity, Reports Hx Musculoskeletal Trauma Skin Medical History: Reports None Psychiatric Medical History: Reports: Hx Depression Traumatic Medical History: Reports: Hx Fractures - Left wrist, Hx Spine Fracture Infectious Medical History: Reports: None Past Surgical History: Reports: Hx Cardiac Catheterization - Cardiac catheter 2, no coronary artery disease found, Hx Cardiac Surgery - Cardioversion and mitral valve clip, Hx Section - X2, Hx Cholecystectomy, Hx Orthopedic Surgery - left shoulder x5, anterior cervical fusion - Immunizations Immunizations up to date: Yes Hx Diphtheria, Pertussis, Tetanus Vaccination: Yes Review of Systems - Review of Systems Constitutional: No symptoms reported EENT: No symptoms reported Cardiovascular: No symptoms reported Respiratory: No symptoms reported Gastrointestinal: No symptoms reported Genitourinary: No symptoms reported Female Genitourinary: No symptoms reported Musculoskeletal: No symptoms reported Skin: No symptoms reported Hematologic/Lymphatic: No symptoms reported Neurological/Psychological: No symptoms reported -: Yes All other systems reviewed and negative Physical Exam - Vital signs Vitals: Temp Pulse Resp BP Pulse Ox 98.5 F 64 17 127/88 H 98 10/10/19 16:23 10/10/19 16:23 10/10/19 16:23 10/10/19 16:23 10/10/19 16:23 Interpretation: Normal - General General appearance: Appears well, Alert - HEENT Head: Normocephalic, Atraumatic Eyes: Normal Pupils: PERRL - Respiratory Respiratory status: No respiratory distress Chest status: Nontender Breath sounds: Normal Chest palpation: Normal - Cardiovascular Rhythm: Regular Heart sounds: Normal auscultation Murmur: No - Abdominal Inspection: Normal Distension: No distension Bowel sounds: Normal Tenderness: Nontender Organomegaly: No organomegaly - Back Back: Normal, Nontender - Extremities General upper extremity: Normal ROM, Normal temperature General lower extremity: Normal inspection, Nontender, Normal color, Normal ROM, Normal temperature, Normal weight bearing. No: Arlette's sign Forearm: Tender, Laceration - 1 puncture nato/laceration from a dog bite - Neurological Neuro grossly intact: Yes Cognition: Normal Orientation: AAOx4 [place] Coma Scale Eye Opening: Spontaneous Fredy Coma Scale Verbal: Oriented [place] Coma Scale Motor: Obeys Commands Fredy Coma Scale Total: 15 Speech: Normal Motor strength normal: LUE, RUE, LLE, RLE Sensory: Normal - Psychological Associated symptoms: Normal affect, Normal mood - Skin Skin Temperature: Warm Skin Moisture: Dry Skin Color: Normal Location of irregularity: Extremities - Dog bite 1 puncture nato to the right forearm Irregularity with: Swelling, Tenderness Course - Re-evaluation Re-evalutation: 10/10/19 18:41 No new radiopaque foreign bodies no bony abnormalities on the x-ray. Wound was cleaned with surgical scrub rinse with saline bacitracin and dressing applied patient was treated with Augmentin and discharged home with Augmentin. - Vital Signs Vital signs: Temp Pulse Resp BP Pulse Ox 98.5 F 64 17 127/88 H 98 10/10/19 16:29 10/10/19 16:23 10/10/19 16:23 10/10/19 16:23 10/10/19 16:23 - Diagnostic Test Radiology reviewed: Image reviewed, Reports reviewed Discharge - Discharge Clinical Impression: Open wound of right forearm due to animal bite Condition: Stable Disposition: HOME, SELF-CARE Additional Instructions: Animal Bites Animal bites are often heavily contaminated with bacteria. In spite of thorough cleansing and proper treatment, these wounds frequently become infected. Bite wounds of the hands are especially prone to complications. Bites are dressed, if possible. Large wounds may require suturing after internal cleansing. Because of infection risk, some large wounds must remain unstitched. Your doctor is trained to advise you on the best treatment for your bite. Call the doctor at once if the wound becomes red, swollen, warm, increasin gly painful, or if it begins to drain. Danger signs also include red streaks up the involved extremity, swollen glands in the groin or under the arm, or fever and chills. The risk of rabies from domestic animals is very low. Bats, sick animals, and wild animals may expose you to rabies. The physician, or the health department, will inform you if you will need to receive the rabies vaccine. Augmentin Augmentin is a mixture of amoxicillin and clavulanate. Amoxicillin is a member of the penicillin family. It covers the germs likely to cause ear, bronchial, and urinary infections better than plain penicillin. The addition of clavulanate allows it to cover staph infections of the skin, as well as resistant cases of ear and sinus infections. Your physician has chosen Augmentin for you because of the special nature of your situation. Augmentin is best taken with meals. Nausea after taking the medication is rare, but can occur. Diarrhea can occur, particularly in small children. Vaginal yeast infections, and oral thrush in infants are also common. Contact your physician if these problems occur. Allergy to penicillins is common. If you have had an allergic reaction to any drug of the penicillin family, you should never take any other penicillin. Notify your doctor at once if you develop hives, shortness of breath, swelling, or faintness. Ibuprofen Ibuprofen is an excellent, safe drug for pain control. In addition, it has potent antiinflammatory effects which are beneficial, especially in the treatment of injuries, arthritis, or tendonitis. It's best to take ibuprofen with food. Persons with ulcer disease or allergy to aspirin should notify their physician of this before taking ibuprofen. Take the medication exactly as prescribed. Don't take additional doses unless instructed to do so by your doctor. If you develop wheezing, shortness of breath, hives, faintness, stomach pain, vomiting, or dark black stools, return for re-evaluation at once. Soap Cleansing Gently wash the wound daily using a mild soap (like Ivory, Phisoderm, Neutrogena). Use warm water, rubbing gently until all debris, ooze, and crusting have been washed from the wound. Allow to dry briefly (about 10 minutes) after cleaning. Repeat this cleansing at least three times a day for the first two days and then once or twice a day. Antibiotic Ointment Protection Your wounds are such that dressing them is not practical or optional. After cleansing, you should apply a thin coating of antibiotic ointment (Bacitracin, not Neosporin) to the wounds at least three times daily. This lessens infection risk, and may decrease the amount of scarring. Use a q-tip or dull butter knife, not your finger, to apply this ointment. Any debris or ooze which builds up in the ointment should be gently rubbed off with a sterile gauze pad. Harder crusting may need to be gently scrubbed off with a clean wash cloth with soap and warm water, perhaps applying a warm, wet wash cloth to the wound for ten minutes first. Development of redness, severe itching, or blistering may mean allergy to the ointment. See the doctor. FOLLOW-UP CARE: If you have been referred to a physician for follow-up care, call the physicians office for an appointment as you were instructed or within the next two days. If you experience worsening or a significant change in your symptoms, notify the physician immediately or return to the Emergency Department at any time for re-evaluation. Prescriptions: Amoxicillin/Potassium Clav [Augmentin 875-125 Tablet] 1 tab PO Q12 #20 tablet Forms: Elevated Blood Pressure Referrals: AMARJIT SPENCER MD [ACTIVE STAFF] - Follow up as needed
--- NOTE | 2019-10-10 17:25 | RADIOLOGY REPORT (SQ) ---
EXAM DESCRIPTION: FOREARM RIGHT IMAGES COMPLETED DATE/TIME: 10/10/2019 5:04 pm REASON FOR STUDY: dog bite COMPARISON: None. NUMBER OF VIEWS: Two views. TECHNIQUE: Two radiographic images acquired of the right forearm, including elbow and wrist in at le ast one projection. LIMITATIONS: None. FINDINGS: MINERALIZATION: Normal. BONES: No acute fracture. No worrisome bone lesions. SOFT TISSUES: No obvious swelling or foreign body. OTHER: No other significant finding. IMPRESSION: 1. No acute osseous findings. 2. No opaque foreign body. TECHNICAL DOCUMENTATION: JOB ID: [id number] 2010 [employer]- All Rights Reserved Reading location - IP/workstation name: [email or web address]
== END 2019-10-10 17:52 | disposition home or self-care (01) ==
LOC: ER 16:19
DX: S51.851A Open bite of right forearm, initial encounter (principal); M79.601 Pain in right arm; W54.0XXA Bitten by dog, initial encounter; I48.91 Unspecified atrial fibrillation; I25.10 Atherosclerotic heart disease of native coronary artery without angina pectoris
CPT/HCPCS: 99283; 73090; A9270; J3490

== ENCOUNTER 2019-12-01 11:07 | Emergency (ER) | payer MEDICARE, MEDICAID ==
[2019-12-01 11:11] VITALS: BP 136/83
--- NOTE | 2019-12-01 13:05 | RADIOLOGY REPORT (SQ) ---
EXAM DESCRIPTION: CT HEAD WITHOUT IMAGES COMPLETED DATE/TIME: 12/01/2019 12:49 pm REASON FOR STUDY: headache COMPARISON: 09/01/2014 TECHNIQUE: Axial images acquired through the brain without intravenous contrast. Images reviewed wi th bone, brain and subdural windows. Additional sagittal and coronal reconstructions were generated. Images stored on PACS. All CT scanners at this facility use dose modulation, iterative reconstruction, and/or weight based d osing when appropriate to reduce radiation dose to as low as reasonably achievable (ALARA). [facility]: Dose Right [facility]: CareDose [facility]: Dose Right [facility]: Teradose 4D [facility]: [employer] Technologies RADIATION DOSE: CT Rad equipment meets quality standard of care and radiation dose reduction techniq ues were employed. CTDIvol: 53.2 mGy. DLP: 991 mGy-cm. mGy. LIMITATIONS: None. FINDINGS: VENTRICLES: Normal size and contour. CEREBRUM: No masses. No hemorrhage. No midline shift. No evidence for acute infarction. Normal gra y/white matter differentiation. No areas of low density in the white matter. CEREBELLUM: No masses. No hemorrhage. No alteration of density. No evidence for acute infarction. EXTRAAXIAL SPACES: No fluid collections. No masses. ORBITS AND GLOBE: No intra- or extraconal masses. Normal contour of globe without masses. CALVARIUM: No fracture. PARANASAL SINUSES: No fluid or mucosal thickening. SOFT TISSUES: No mass or hematoma. OTHER: No other significant finding. IMPRESSION: NORMAL BRAIN CT WITHOUT CONTRAST. EVIDENCE OF ACUTE STROKE: NO. COMMENT: Quality ID # [id number]: Final reports with documentation of one or more dose reduction techniques (e.g., Automated exposure control, adjustment of the mA and/or kV according to patient size, use of iterative reconstruction technique) TECHNICAL DOCUMENTATION: JOB ID: [id number] 2010 [email or web address]- All Rights Reserved Reading location - IP/workstation name: [email or web address]
--- NOTE | 2019-12-01 13:33 | ER Document Report ---
HPI - HPI Patient complains to provider of: Headache Time Seen by Provider: 12/01/19 12:25 Pain Level: 1 Context: 59-year-old female past medical history significant for migraines presents to the emergency room complaining of a sudden onset of a headache that started earlier today. States it was behind her right eye. States she took Fioricet and half a meclizine and then proceeded to vomit both of them. Denies any head trauma or head injury. Denies worst headache of her life. No sudden thunderclap. Patient arrived via EMS and was given IV Zofran and IV Toradol prior to arrival. Associated Symptoms: Nausea, Vomiting Exacerbated by: Denies Relieved by: Other - Zofran, Toradol Similar symptoms previously: Yes - Frequent migraines Recently seen / treated by doctor: No - ROS Systems Reviewed and Negative: Yes All other systems reviewed and negative - CONSTITUTIONAL Constitutional: DENIES: Fever, Chills - NEURO Neurology: REPORTS: Headache, Dizzinesss / Vertigo. DENIES: Weakness, Vision blurred - RESPIRATORY Respiratory: DENIES: Trouble Breathing - REPRODUCTIVE LMP: menopausal Reproductive: DENIES: : Past Medical History - General Information source: Patient - Social History Smoking Status: Never Smoker Chew tobacco use (# tins/day): No Frequency of alcohol use: Occasional Drug Abuse: None Family History: Reviewed & Not Pertinent, CAD, CVA, Hypertension, Malignancy Patient has homicidal ideation: No - Past Medical History Cardiac Medical History: Reports: Hx Atrial Fibrillation, Hx Coronary Artery Disease, Hx Hypercholesterolemia, Hx Hypertension Neurological Medical History: Reports: Hx Migraine GI Medical History: Reports: Hx Gastroesophageal Reflux Disease Musculoskeletal Medical History: Reports Hx Arthritis - Rheumatoid arthritis, Reports Hx Musculoskeletal Deformity, Reports Hx Musculoskeletal Trauma Psychiatric Medical History: Reports: Hx Depression Traumatic Medical History: Reports: Hx Fractures - Left wrist, Hx Spine Fracture Past Surgical History: Reports: Hx Cardiac Catheterization - 2 clean caths, Hx Cardiac Surgery - Cardioversion and mitral valve clip, Hx Section - X2, Hx Cholecystectomy, Hx Orthopedic Surgery - left shoulder x5, anterior cervical fusion - Immunizations Immunizations up to date: Yes Hx Diphtheria, Pertussis, Tetanus Vaccination: Yes Vertical Provider Document - CONSTITUTIONAL Agree With Documented VS: Yes Exam Limitations: No Limitations General Appearance: Mild Distress - INFECTION CONTROL TRAVEL OUTSIDE OF THE [place] IN LAST 30 DAYS: No - HEENT HEENT: Atraumatic, Normal ENT Exam, Normocephalic, PERRLA. negative: Pharyngeal Erythema Notes: EOMI bilaterally head is nontender to palpation. - NECK Neck: Normal Inspection, Supple - RESPIRATORY Respiratory: Breath Sounds Normal, No Respiratory Distress - CARDIOVASCULAR Cardiovascular: Regular Rate, Regular Rhythm, No Murmur - BACK Back: Normal Inspection - MUSCULOSKELETAL/EXTREMETIES Musculoskeletal/Extremeties: FROM - NEURO Level of Consciousness: Awake, Alert, Appropriate Motor/Sensory: No Motor Deficit, No Sensory Deficit, No Pronator Drift Notes: Negative nystagmus, negative Nylan Barany. Neurovascularly and neurologically intact. - DERM Integumentary: Warm, Dry, No Rash Course - Re-evaluation Re-evalutation: 12/01/19 13:30 She is resting comfortably headache has resolved. Reviewed CAT scan results with patient. Counseled follow-up with primary care physician as discussed. Patient was given strict return to the emergency room guidelines. Return for any new or worsening symptoms. All questions were answered. Patient verbalized understanding and agrees with plan of care. - Vital Signs Vital signs: Temp Pulse Resp BP Pulse Ox 98 F 63 18 136/83 H 100 12/01/19 11:10 12/01/19 11:10 12/01/19 11:10 12/01/19 11:10 12/01/19 11:10 - Diagnostic Test Radiology reviewed: Reports reviewed Discharge - Discharge Clinical Impression: Headache Qualifiers: Headache type: other headache syndrome Qualified Code(s): G44.89 - Other headache syndrome Condition: Stable Disposition: HOME, SELF-CARE Instructions: Headache ([facility]) Additional Instructions: Continue home medications. Outpatient follow-up with primary care physician if not improving in 2 to 3 days. Return to the emergency room for any new or worsening symptoms.
== END 2019-12-01 13:45 | disposition home or self-care (01) ==
LOC: ER 11:07
DX: R51 Headache (principal); R42 Dizziness and giddiness; I48.91 Unspecified atrial fibrillation; I25.10 Atherosclerotic heart disease of native coronary artery without angina pectoris; E78.00 Pure hypercholesterolemia, unspecified; I10 Essential (primary) hypertension
CPT/HCPCS: 70450; 99284

== ENCOUNTER → 2020-03-18 | Outpatient (CLI) | payer MEDICARE, MEDICAID ==
--- NOTE | 2020-03-18 16:16 | RADIOLOGY REPORT (SQ) ---
EXAM DESCRIPTION: VENOUS UNILATERAL UPPER IMAGES COMPLETED DATE/TIME: 03/18/2020 3:57 pm REASON FOR STUDY: RUE SWELLING R22.31 LOCALIZED SWELLING, MASS AND LUMP, RIGHT UPPER LIMB COMPARISON: None. TECHNIQUE: Dynamic and static ferraro scale and color images acquired of the right arm venous system. S elected spectral images acquired with additional compression and augmentation maneuvers. The contrala teral subclavian vein and internal jugular vein were also imaged. Images stored on PACS. LIMITATIONS: None. FINDINGS: INTERNAL JUGULAR VEIN: Normal phasicity, compression, augmentation. No visualized echogeni c material on ferraro scale. No defects on color images. Comparison opposite side normal. SUBCLAVIAN VEIN: Normal compression, augmentation. No visualized echogenic material on ferraro scale. No defects on color images. AXILLARY VEIN: Normal compression, augmentation. No visualized echogenic material on ferraro scale. No d efects on color images. BRACHIAL VEIN: Normal compression, augmentation. No visualized echogenic material on ferraro scale. No d efects on color images. BASILIC VEIN: Normal compression, augmentation. No visualized echogenic material on ferraro scale. No de fects on color images. CEPHALIC VEIN: Normal compression, augmentation. No visualized echogenic material on ferraro scale. No d efects on color images. OTHER: No other significant finding. CONTRALATERAL SUBCLAVIAN VEIN AND INTERNAL JUGULAR VEIN: Normal phasicity, compression and augmentation. No visualized echogenic material on ferraro scale. No de fects on color images. IMPRESSION: NO EVIDENCE DVT OR SVT IN THE RIGHT ARM. TECHNICAL DOCUMENTATION: JOB ID: [id number] 2010 [[employer]- All Rights Reserved Reading location - IP/workstation name: [email or web address]
== END ==
LOC: SP 14:30
PROVIDERS: ATTEND Internal Medicine
DX: R22.31 Localized swelling, mass and lump, right upper limb (principal)
CPT/HCPCS: 93971

== ENCOUNTER 2020-05-10 12:38 | Emergency (ER) | payer MEDICARE, MEDICAID ==
[2020-05-10 12:45] VITALS: BP 132/40
== END 2020-05-10 14:51 | disposition left against medical advice (07) ==
LOC: ER 12:38
DX: Z53.21 Procedure and treatment not carried out due to patient leaving prior to being seen by health care provider (principal)